=== PATIENT | male | born 1955 ===

== ENCOUNTER 2018-04-05 07:32 | Emergency (ER) | payer OTHER ==
[2018-04-05] MEDS ORDERED: RABIES IMMUNE GLOBULIN 300 UNIT/2 ML VIAL IM ONE (07:46)
[2018-04-05] MEDS ORDERED: RABIES VACC, HUMAN DIPLOID/PF 2.5 UNIT VIAL (RABAVERT) IM ONE (07:46)
--- NOTE | 2018-04-05 08:02 | EDPHY ---
H & P Time Seen by Provider: 04/05/18 07:35 HPI/ROS: CHIEF COMPLAINT: Raccoon bite HISTORY OF PRESENT ILLNESS: Patient states that around 7 o'clock this morning he was trying to get a baby raccoon away from his dogs and was bitten by the baby raccoon. Animal appeared healthy otherwise. Baby raccoon sibling was killed by the dog. He has a bite wound to his right thumb. Tetanus vaccination up-to-date. No other injuries reported. REVIEW OF SYSTEMS: Negative except per HPI. General Appearance: Alert, no distress. Eyes: Pupils equal and round no icterus Respiratory: No respiratory distress Neurological: Awake, alert, no focal deficits. Skin: Warm and dry, no rashes. Musculoskeletal: Neck is supple nontender. 2 cm laceration to right thumb on the radial aspect over the PIP. Distal circulation sensation movement intact. Extremities are symmetrical, full range of motion, no edema. Psychiatric: Patient is oriented X 3, there is no agitation. Medical/surgical history: Hypertension, surgeries include tonsils, hernia, TURP , hip replacement Social history: Nonsmoker, no drugs or alcohol. Smoking Status: Former smoker Constitutional: Initial Vital Signs Temperature (C) 36.6 C 04/05/18 07:42 Heart Rate 86 04/05/18 07:42 Respiratory Rate 18 04/05/18 07:42 Blood Pressure 114/98 H 04/05/18 07:42 O2 Sat (%) 93 04/05/18 07:42 Allergies/Adverse Reactions: No Known Allergies Allergy (Unverified 04/05/18 07:35) Home Medications: Medication Instructions Recorded Bp Med ? 04/05/18 Carbidopa-Levodopa 10-100 Tab 04/05/18 Nsaid ? 04/05/18 Omeprazole 04/05/18 Potassium Cl 04/05/18 Simvastatin 04/05/18 Sulfasalazine 04/05/18 Synthroid 04/05/18 VENLAFAXINE HCL 04/05/18 Medical Decision Making ED Course/Re-evaluation: 8:00 a.m. discussed with Jen from a [facility] call. Plan to have patient follow-up for subsequent rabies vaccine on days 3, 7, 14. This corresponded to April 08, , and . On those days he will need rabies vaccine given. Differential Diagnosis: Differential diagnosis includes but not limited to animal bite, suturable laceration, fracture, neurovascular injury. After evaluation post exposure prophylaxis for rabies initiated. Wound nonsuturable but cleaned with povidone- iodine solution and water. Then will be dressed in a normal fashion. Patient will need to get repeat vaccinations on April 08, April 12, April 19. This will be accomplished at a [facility] facility. Patient understands to return here if he has difficulty arranging that as outpatient. Discussed wound care, signs symptoms of infection, follow-up. Departure - Departure Clinical Impression: Animal bite of finger Qualifiers: Encounter type: initial encounter Qualified Code(s): S61.259A - Open bite of unspecified finger without damage to nail, initial encounter Condition: Good Instructions: Rabies Vaccine (By injection), Rabies Immune Globulin (By injection) Additional Instructions: Follow-up dates for rabies vaccine are April 08, April 12, April 19. Follow up with your [facility] facility to arrange this as outpatient. Return to the emergency department for any signs or symptoms of infection or other concerning new symptoms. Referrals: NELLY GONZALEZ [Other] - As per Instructions
[2018-04-05 09:12] VITALS: BP 146/97
== END 2018-04-05 08:56 | disposition home or self-care (01) ==
LOC: CED 07:32
DX: S61.051A Open bite of right thumb without damage to nail, initial encounter (principal); W55.51XA Bitten by raccoon, initial encounter; I10 Essential (primary) hypertension; Z23 Encounter for immunization; Z87.891 Personal history of nicotine dependence